=== PATIENT | male | born 1990 | race Caucasian/White ===

== ENCOUNTER 2017-05-28 21:50 | Emergency (ER) | payer SELFPAY ==
[~2017-05-28] VITALS: Ht 177.8 cm; Wt 113.6 kg
[2017-05-28 21:56] VITALS: TEMP 36.9; Ht 177.8 cm; Wt 113.6 kg
[2017-05-28] MEDS ORDERED: ACETAMINOPHEN 500 MG TAB PO STA (22:09)
[2017-05-28] MEDS ORDERED: OPTIRAY 320 IV PRN (22:15)
[2017-05-28 22:38] VITALS: O2SAT 97
[2017-05-28] MEDS ORDERED: IBUP-1050 PO (22:38)
--- NOTE | 2017-05-28 22:49 | DIAGNOSTIC IMAGING REPORT ---
LEFT KNEE 3 VIEWS CLINICAL HISTORY: Fall. Left knee pain. FINDINGS: AP, crosstable lateral, and sunrise views of the left knee are obtained. No prior studies are available for comparison at the time of dictation. The skeletal structures are well mineralized. No fracture is seen. The joint spaces of the knee are well-maintained. There is a large joint effusion. Prepatellar soft tissue swelling is noted. IMPRESSION: Soft tissue swelling and large joint effusion. No left knee fracture is identified. Electronically signed by: Bharat Beach M.D. 05/28/2017 10:47 PM Dictated Date/Time: 05/28/2017 10:46 PM
[2017-05-29 00:15] VITALS: BP 137/76; PULSE 68; O2SAT 99
[2017-05-29] MEDS ORDERED: OXYCODONE IR HOME PACK PO ONE (00:15)
--- NOTE | 2017-05-29 01:24 | EMERGENCY ROOM VISIT NOTE ---
History First contact with patient: 22:00 Chief Complaint: CHEST INJURY Stated Complaint: CHEST PAIN,KNEE PAIN History of Present Illness The patient is a 26 year old male who presents to the Emergency Room with complaints of right-sided chest pain and left knee pain after falling off his skateboard do any stent today. Patient has pain with ambulation. No prior fracture to these areas. Patient states the pain is worse with breathing and ambulation. Pain currently 7 out of 10. It does not radiate. Patient denies abdominal pain, head injury, neck pain, back pain, hip pain, ankle pain, numbness, tingling. No loss of consciousness. Review of Systems See HPI for pertinent positives & negatives. A total of 10 systems reviewed and were otherwise negative. Past Medical/Surgical History none Social History Smoking Status: Never Smoker Smokeless Tobacco Use: Yes Alcohol Use: none Drug Use: none Occupation Status: employed Current/Historical Medications Scheduled Ibuprofen (Advil), 600-800 MG PO PRN UD Physical Exam Vital Signs Date Time Temp Pulse Resp B/P (MAP) Pulse Ox O2 Delivery O2 Flow Rate FiO2 05/29/17 00:15 68 18 137/76 99 05/28/17 23:52 68 18 137/76 99 Room Air 05/28/17 22:38 97 05/28/17 21:56 36.9 94 18 113/74 97 Room Air Physical Exam PHYSICAL EXAM: VITALS: Vitals are noted on the nurse's note and reviewed by myself. Vital signs stable. GENERAL: Pleasant male, in no acute distress, nondiaphoretic, well-developed well-nourished. SKIN: The skin was without obvious lacerations or abrasions. Capillary reflex less than 2 seconds. HEAD: Normocephalic atraumatic. EARS: External auditory canals clear, tympanic membranes pearly duncan without erythema or effusion bilaterally. No hemotympanums. No abraham sign. No mastoid tenderness. EYES: Pupils equal round and reactive to light and accommodation. Conjunctivae without injection, sclerae without icterus. Extraocular movements intact. NOSE: Patent, turbinates without inflammation or discharge. No sinus tenderness. No septal hematoma or bleeding. MOUTH: Mucous membranes moist. Pharynx without erythema or exudate. Uvula midline. Airway patent. Tongue does not deviate. NECK: Supple without nuchal rigidity. Cervical spine is nontender. Full range of motion of the neck without tenderness. No JVD. HEART: Regular rate and rhythm without murmurs gallops or rubs. LUNGS: Clear to auscultation bilaterally without wheezes, rales or rhonchi. No dullness to percussion. No retractions or accessory muscle use. Right low chest chest wall tenderness. ABDOMEN: Positive bowel sounds x 4. Normal tympanic percussion. Soft, nontender, without masses or organomegaly. No guarding or rebound tenderness. MUSCULOSKELETAL: No tenderness of the thoracic or lumbar spine. Left knee tender to palpation that is edematous with increased pain with range of motion. 4 out of 5 strength. Full range of motion without tenderness to palpation in all other extremities. NEURO: Patient was alert and oriented to person place and time. Normal sensation to light and sharp touch. No focal neurological deficits. Medical Decision & Procedures Medications Administered Medications (Trade) Dose Ordered Sig/Denisa Route Start Time Stop Time Status Last Admin Dose Admin Acetaminophen (Tylenol Tab) 1,000 mg NOW STAT PO 05/28/17 22:09 05/28/17 22:11 DC 05/28/17 22:24 1,000 MG Oxycodone HCl (Roxicodone Immediate Rel 5MG Home Pack) 1 homepack UD ONCE PO 05/29/17 00:15 05/29/17 00:16 DC 05/29/17 00:10 1 HOMEPACK ED Course Prior records/ancillary studies reviewed. Triage Nursing notes reviewed. Additional history obtained from friend The patient's history was concerning for traumatic injury Differential diagnosis: Etiologies such as fracture, dislocation, intra-abdominal, pneumothorax, intrathoracic , intracranial, neurologic, as well as other traumatic pathologies were entertained. Physical examination findings: As above. The patients vitals were stable. ER treatment provided: Incentive spirometry, Tylenol On reassessment the patient felt better. Vital signs were stable. Diagnostic interpretation by me: CR 0.9 on [facility] Imaging studies: Chest CT negative for acute findings per stat radiology LEFT KNEE 3 VIEWS CLINICAL HISTORY: Fall. Left knee pain. FINDINGS: AP, crosstable lateral, and sunrise views of the left knee are obtained. No prior studies are available for comparison at the time of dictation. The skeletal structures are well mineralized. No fracture is seen. The joint spaces of the knee are well-maintained. There is a large joint effusion. Prepatellar soft tissue swelling is noted. IMPRESSION: Soft tissue swelling and large joint effusion. No left knee fracture is identified. Electronically signed by: Bharat Beach M.D. This appears to be consistent with left knee injury and right-sided chest wall injury. Patient no acute findings on CT imaging. No fracture on x-ray. Patient was placed in a knee immobilizer and neurovascular status was rechecked after placement and is intact. He was instructed on the use of crutches. I'm concerned that he might have a meniscal injury or hemarthrosis secondary to the patient's swelling on clinical exam. He was strongly encouraged to see orthopedics. Patient was advised to do incentive spirometry. He was advised to return to the ER immediately for chest pain, difficulty breathing, severe pain, worsening signs or symptoms or as needed. By the evaluation outlined above emergent etiologies such as fracture, dislocation, intra-abdominal, pneumothorax, pulmonary contusion, hemothorax, intracranial, neurologic,as well as others were deemed relatively unlikely. The pt informed about the findings as listed above. All questions were answered and pleased with the treatment. Return instructions were outlined and the patient was discharged in stable condition. Outpatient prescription management: OxyIR Referral: The patient was referred to orthopedics and family care doctor for follow-up in 2 to 3 days for a recheck of the current condition. Medical Decision As above Medication Reconcilliation Current Medication List: was personally reviewed by co Blood Pressure Screening Patient's blood pressure: Normal blood pressure Impression Primary Impression: Chest wall injury Additional Impression: Left knee injury Departure Information Dispostion Home / Self-Care Condition GOOD Referrals Girish Mathias M.D. Forms Work Instructions, Return To Work: 2 days IMPORTANT VISIT INFORMATION Patient Instructions [facility], ED Contusion Chest Wall, ED Effusion Knee Additional Instructions Chest wall injury: Incentive spirometry 10 times an hour while you're awake for the next 2 weeks. Ibuprofen(Motrin, Advil) may be used for fever or pain. Use 600mg every six hours as needed. Take with food. Avoid using more than 2400mg in a 24 hour period. Do not use 2400mg per day for more than three consecutive days without physician direction. Prolonged inappropriate use can lead to stomach upset or ulcers. (AND/OR) Acetaminophen(Tylenol) may be used for fever or pain. Use 1000mg every six hours as needed. Avoid using more than 3000mg in a 24 hour period. Rest and drink plenty of fluids as tolerated. Continue current medications. Avoid strenuous activities and anything that worsens your pain. Resume normal activities once your symptoms resolve. Return to the ER immediately for worsening or persistent chest pain, abdominal pain, vomiting, fevers, chest pains, difficulty breathing, worsening of your condition, or as needed. Follow up with your primary physician in 2-3 days for a recheck of your current condition. Knee injury: Oxycodone (OxyIR) 5mg: Take 1-2 pills every four hours for breakthrough pain. Avoid alcohol, operating machinery or dangerous equipment, working on ladders or roofs, DRIVING, or situations where being under the influence may be dangerous. It is recommended to use an [id number] stool softener such as Colace, 100mg twice daily while taking this medication to avoid constipation. Ibuprofen(Motrin, Advil) may be used for fever or pain. Use 600mg every six hours as needed. Take with food. Avoid using more than 2400mg in a 24 hour period. Do not use 2400mg per day for more than three consecutive days without physician direction. Prolonged inappropriate use can lead to stomach upset or ulcers. This medication can be taken if you need to drive, work, or perform activities which may be dangerous when taking narcotic pain medication. (AND/OR) Acetaminophen(Tylenol) may be used for fever or pain. Use 1000mg every six hours as needed. Avoid using more than 3000mg in a 24 hour period. This medication can be taken if you need to drive, work, or perform activities which may be dangerous when taking narcotic pain medication. Ice compresses for 20 minutes at a time four times daily for 2-3 days. Use the crutches as instructed. Rest and elevate your injury. Wear knee immobilizer when up and about. Do not have it so tight that you cannot feel your foot. Continue current medications. Return to the ER immediately for any numbness, tingling, severe pain, extreme swelling in the extremity or as needed. Call Orthopedics tomorrow to arrange follow up for your injury. Work Instructions Return To Work: 2 days Problem Qualifiers Primary Impression: Chest wall injury Encounter type: initial encounter Qualified Codes: S29.9XXA - Unspecified injury of thorax, initial encounter Additional Impression: Left knee injury Encounter type: initial encounter Qualified Codes: S89.92XA - Unspecified injury of left lower leg, initial encounter
--- NOTE | 2017-05-29 06:52 | DIAGNOSTIC IMAGING REPORT ---
CHEST CT WITH CONTRAST CT DOSE: 863.53 mGy.cm HISTORY: Acute chest injury and chest pain status post trauma fall from skateboard jump, right CP TECHNIQUE: Multiaxial CT images of the chest were performed following the intravenous administration of 116 mL Optiray 320 IV contrast. A dose lowering technique was utilized adhering to the principles of ALARA. COMPARISON: None. FINDINGS: Thyroid is heterogeneous without focal nodule identified. No pathologic adenopathy. Scattered prominent upper mediastinal, subcarinal and right hilar lymph nodes are seen measuring up to 8 mm in short axis, nonspecific and likely reactive. Heart is normal in size without pericardial effusion. Thoracic aorta is normal in course and caliber without dissection or aneurysm. The opacified pulmonary arterial tree is unremarkable. There is no pneumothorax or pleural effusion. Mild paraseptal emphysematous changes are noted along the bilateral major fissures and to a lesser extent along the posterior lateral aspect of the left lower lobe. Minimal dependent bibasilar atelectasis. No pulmonary contusion or pulmonary laceration identified. Central airways are patent. There is suggested fatty infiltration of the liver on this contrast-enhanced study. No acute abnormality of the imaged upper abdomen is identified. Soft tissues are unremarkable. Bones appear intact. No sternal fracture. IMPRESSION: 1. No acute intrathoracic abnormality identified. 2. No fracture. 3. Mild paraseptal emphysematous changes, notably along the bilateral major fissures and to a lesser extent within the left lower lobe. Electronically signed by: Francisco Kasper M.D. 05/29/2017 6:50 AM Dictated Date/Time: 05/29/2017 6:44 AM
[2017-05-29 09:09] LABS: ISTAT CREATININE 0.9 mg/dl (0.6-1.3); ISTAT HEMOGLOBIN 14.6 g/dl (14.0-18.0); ISTAT IONIZED CALCIUM 1.19 mmol/l (1.12-1.32)
== END 2017-05-29 00:15 | disposition home or self-care (01) ==
LOC: C.EDB 21:53 → C.EDA 05-29 00:15
DX: S29.9XXA Unspecified injury of thorax, initial encounter (principal); S89.92XA Unspecified injury of left lower leg, initial encounter; V00.138A Other skateboard accident, initial encounter